=== PATIENT | female | born 1990 | race Caucasian/White ===

== ENCOUNTER 2025-04-08 07:58 | Outpatient (CLI) | payer MEDICAID ==
[2025-04-08] VITALS (10 sets, daily range): BP systolic 105–122; BP diastolic 71–79; PULSE 90–125
[2025-04-08] MEDS ORDERED: CEPH-585 PO (16:44)
== END 2025-04-08 23:59 | disposition home or self-care (01) ==
LOC: CARD DIAG 07:58
PROVIDERS: ATTEND Internal Medicine Interventional Cardiology
DX: R55 Syncope and collapse (principal)
CPT/HCPCS: 93660

== ENCOUNTER 2025-04-08 12:30 | Emergency (ER) | payer MEDICAID ==
[~2025-04-08] VITALS: Ht 157.5 cm; Wt 79.1 kg
--- NOTE | 2025-04-08 12:55 | ELECTROCARDIOGRAPH REPORT ---
[facility] Test Date: 2025-04-08 Test Time: 12:53:56 Pat Name: LEXI RIVERA Department: [facility]- Patient ID: [id number] Room: Gender: F Senior Analyst: : 1990 Requested By: CONCHITA HILLMAN Order Number: [id number] Reading MD: Dr. Sergey Garber Measurements Intervals [place] Rate: 92 P: 46 SD: 130 QRS: 73 QRSD: 82 T: 23 QT: 348 QTc: 431 Interpretive Statements Sinus rhythm Electronically Signed On 04-08-2025 18:50:[address] Sergey Garber Please click the below link to view image of tracing.
[2025-04-08 13:04] LABS: MEAN PLATELET VOLUME 9.8 FL (7.4-10.4); RED CELL DISTRIBUTION WIDTH 12.9 % (11.5-14.5)
--- NOTE | 2025-04-08 13:24 | RADIOLOGY REPORT ---
EXAM: DI CHEST,SINGLE VIEW Indication: CP Technique: Single frontal view of the chest was obtained Comparison: None FINDINGS: Lines and Tubes: None Lungs: No focal consolidation. Pleura: No effusion. No pneumothorax. Cardiomediastinal contours: Unremarkable Bones: No acute osseous abnormality. IMPRESSION: No acute cardiopulmonary disease.
[2025-04-08 13:30] LABS: CREATININE 0.76 MG/DL (0.40-0.90); PRO BRAIN NATRIURETIC PEPTIDE 53 PG/ML (0-125); TOTAL CARBON DIOXIDE 25.6 MMOL/L (24-32); eCRCL 84 ML/MIN; eGFR 88 ML/MIN
[2025-04-08 15:50] LABS: LEUKOCYTE ESTERASE ,URINE NEGATIVE (Neg); NITRITES, URINE NEGATIVE (Neg); OCCULT BLOOD,URINE LARGE (Neg)
[2025-04-08 15:59] LABS: UA COLLECTION TYPE NON-SPECIFIED
[2025-04-08 16:02] LABS: SQUAMOUS EPITHELIAL CELL,UR FEW /LPF (FEW)
[2025-04-08 16:30] VITALS: TEMP 98
[2025-04-08] MEDS ORDERED: CEPH-585 PO (16:44)
--- NOTE | 2025-04-08 16:47 | Physician Documentation ---
History of Present Illness ~ Chief Complaint: Syncope Stated Complaint: SYNCOPE Time Seen by MD: 14:32 HPI Patient is a very pleasant 34-year-old female that presents to the emergency department for evaluation of a syncopal episode witnessed at her provider's office while undergoing a tilt-table test today. Patient is a accompanied by her mother in the emergency department today. Patient and her mother report that she was undergoing a tilt-table test and orthostatic vital signs when she lost consciousness or sustained a syncopal episode. Patient had significant changes in her vital signs indicating orthostatic hypotension. She recovered quickly and was brought to the emergency department for evaluation. Patient reports that she has had previous episodes of syncope patient has also been diagnosed with POTS and has idiopathic tachycardia patient is undergoing evaluation with Cardiology and Neurology currently. Patient is currently alert and oriented and vital signs are stable. She denies any other symptoms at this time. Medication Reconciliation Allergies: Coded Allergies: No Known Allergies (Unverified , 04/08/25) Review of Systems ROS As stated above in the HPI, otherwise all systems are reviewed and negative. Physical Exam Vital Signs: Temperature: 98.0, Source: Temporal, Heart Rate: 89, Respiratory Rate: 19, BP: 121/79, Pulse Oximetry: 96, Weight: 79.100 Oxygen Flow Rate: 0 Physical Exam VITALS: Reviewed and as above. GENERAL: Alert, no apparent distress. HEENT: Normocephalic, atraumatic, PERRL, EOMI, dry mucosa, no erythema RESPIRATORY: Lungs clear, normal breath sounds, no respiratory distress. CHEST: No accessory muscle use, no retractions CV: Regular rate, rhythm, no edema, no murmur, No: JVD GI: Soft, non-tender, bowels sounds present, no rebound, guarding, or rigidity BACK: No CVA tenderness, or swelling MUSCULOSKELETAL No deformities, no edema SKIN: Warm and dry, no rash NEURO: Oriented x4, No motor or sensory deficit PSYCH: Normal mood and affect, no agitation Progress Results/Orders Results/Orders Orders - FRANCISCA AGGARWAL * Orthostatic Vitals* Q12H (04/08/25 16:13) Vital Signs 04/08/25 04/08/25 04/08/25 04/08/25 12:40 14:24 14:33 15:32 Temp 98.0 98.0 Pulse 91 90 Resp 16 18 18 B/P (MAP) 119/73 115/72 (86) Pulse Ox 98 97 99 O2 Delivery Room Air* O2 Flow Rate 0 0 0 FiO2 21 21 04/08/25 16:30 Temp 98.0 Pulse 89 Resp 19 B/P (MAP) 121/79 (93) Pulse Ox 96 O2 Flow Rate 0 Laboratory Tests Test 04/08/25 12:57 04/08/25 14:56 04/08/25 15:20 04/08/25 15:50 White Blood Count 13.4 H Red Blood Count 5.21 Hemoglobin 15.5 Hematocrit 45.1 H Mean Corpuscular Volume 86.6 Mean Corpuscular Hemoglobin 29.7 Mean Corpuscular Hemoglobin Concent 34.3 Red Cell Distribution Width 12.9 Platelet Count 274 Mean Platelet Volume 9.8 Neutrophils (%) (Auto) 87.2 H Lymphocytes (%) (Auto) 8.2 L Monocytes (%) (Auto) 3.8 Eosinophils (%) (Auto) 0.3 Basophils (%) (Auto) 0.5 Neutrophils # (Auto) 11.7 H Lymphocytes # (Auto) 1.1 Monocytes # (Auto) 0.5 Eosinophils # (Auto) 0.0 Basophils # (Auto) 0.1 CBC Comment Sodium Level 136 Potassium Level 4.1 Chloride Level 105 Carbon Dioxide Level 25.6 Anion Gap 5 L Blood Urea Nitrogen 10 Creatinine 0.76 Estimated GFR/1.73 m2 88 BUN/Creatinine Ratio 13.2 Glucose Level 129 H Calcium Level 8.6 Troponin I High Sensitivity 15 15 14 Pro-B-Type Natriuretic Peptide 53 Albumin 3.8 Chemistry Comments Troponin I High Sens Percent Delta 0 6 Troponin I Hi Sens Absolute Change 0 -1 Urine Specimen Description Non-specified Urine Color Yellow Urine Clarity Clear Urine pH 5.5 Urine Specific [place] >=1.030 Urine Protein Negative Urine Glucose (UA) Negative Urine Ketones 40 H Urine Occult Blood Large H Urine Nitrite Negative Urine Bilirubin Negative Urine Urobilinogen 0.2 Urine Leukocyte Esterase Negative Urine RBC 3-10 Urine WBC 5-10 H Urine Squamous Epithelial Cells Few Urine Transitional Epithelial Cells Few Urine Bacteria 2+ Urine Culture Indicated Indicated Volume Urine Centrifuged 10 ml Urine Comment Medical Decision Making Additional information obtaine: other Findings 34-year-old female with a history of postural orthostatic tachycardia syndrome (POTS) and prior orthostatic hypotension-related syncope presented to the ED after a witnessed syncopal episode during tilt-table testing at her providers office. The episode was associated with documented orthostatic hypotension. She is followed by neurology and cardiology, with upcoming outpatient appointments. ED evaluation included detailed history, physical examination, orthostatic vital signs, ECG, and laboratory studies. No evidence of cardiac arrhythmia, structural heart disease, or other serious medical conditions was identified. Current vital signs are stable and appropriate. No concerning findings on cardiac workup or laboratory diagnostics. Urinalysis today was positive for urinary tract infection. Patient was informed of the diagnosis, provided education regarding symptoms, potential complications, and the importance of completing the prescribed antibiotic course. Antibiotics have been prescribed for the patient to sheepskin pickler at the pharmacy. Return precautions for worsening symptoms or lack of improvement were discussed. Risk stratification places the patient at low risk for adverse outcomes, given the absence of cardiac disease, abnormal ECG, or other high-risk features. The presumptive etiology of syncope is orthostatic hypotension in the context of POTS, which is associated with a benign prognosis. Per the [place] [employer]/[place] [employer]/Heart Rhythm Society guidelines, outpatient management is reasonable in patients with reflex-mediated or orthostatic syncope and no serious comorbidities. Hospital-based evaluation is unlikely to improve outcomes in this setting. No acute interventions required for syncope. Patient is safe for discharge with close outpatient follow-up with neurology and cardiology. Return precautions and education regarding recurrent syncope, injury risk, and UTI management were provided. No evidence for cardiac syncope or need for inpatient monitoring at this time. Differential Dx:Considerations: Include: anemia, CVA, cerebral occlusion, cerebral thrombosis, dehydration, dysrhythmia, electrolyte disorder, encephalopathy, hypoglycemia, hypovolemia, labyrinthitis, Meniere's disease, myocardial infarction, pulmonary embolus, TIA, vasovagal, VBI, vertigo central, vertigo peripheral, vestibular neuronitis, other Departure Disposition: 01 HOME / SELF CARE / HOMELESS Impression: Primary Impression: Syncope Additional Impressions: Orthostatic hypotension Urinary tract infection Condition: Stable Discharge Instructions: Near-Syncope, Orthostatic Hypotension, Syncope, Adult, Urinary Tract Infection, Adult, [id number] Additional Instructions: You were seen today for fainting (syncope) and have a history of postural orthostatic tachycardia syndrome (POTS). Your vital signs, blood tests, and chest X-ray were normal. Your urine test showed a urinary tract infection (UTI). About Syncope and POTS: POTS can cause symptoms like lightheadedness, rapid heartbeat, and sometimes fainting, especially when standing up quickly. To help prevent future episodes, stand up slowly, stay hydrated, and avoid standing for long periods. Increasing salt and fluid intake may help, unless you have been told otherwise by your doctor. If you feel faint, sit or lie down right away to prevent injury. About Your Urinary Tract Infection: You have a UTI, which is an infection in your urinary system. Symptoms may include burning with urination, frequent urination, or lower abdominal pain. You have been prescribed Keflex (cephalexin), an antibiotic, to treat this infection. How to Take Keflex (Cephalexin): Take Keflex 500 mg by mouth every 6 hours (four times a day) for 7 days. Try to take the doses at evenly spaced times, such as morning, midday, evening, and bedtime. You can take Keflex with or without food. Finish all 7 days of the antibiotic, even if you start to feel better before it is done. Stopping early can cause the infection to come back and may make it harder to treat in the future. If you miss a dose, take it as soon as you remember. If it is almost time for your next dose, skip the missed dosedo not take two doses at once. Possible Side Effects: Common: Upset stomach, diarrhea, or mild rash. Rare but serious: Severe allergic reaction (trouble breathing, swelling of face /lips/tongue, severe rash), severe diarrhea (watery or bloody stools). If you have any signs of a severe reaction, seek medical attention immediately. When to Seek Medical Care: If you have chest pain, trouble breathing, severe headache, confusion, or faint again and cannot be awakened. If you develop severe side effects from the antibiotic. If your UTI symptoms do not improve in 2-3 days, or if you develop fever, back pain, or vomiting. Follow-Up: Continue follow-up with your neurologist and typist as scheduled for your POTS. If you have any questions or concerns, contact your healthcare provider. Other Instructions: Drink plenty of fluids unless you have been told to limit fluids. Avoid alcohol while taking antibiotics. Do not drive or operate heavy machinery if you feel dizzy or lightheaded. Summary: You are being treated for a UTI and your fainting episode is likely related to your POTS. Take your medication as directed, follow the above precautions, and keep your follow-up appointments. Referrals: NO PRIMARY CARE PROVIDER (PCP) Prescriptions Cephalexin*Monohydrate* (Keflex*) 500 Mg Capsule 1 CAP PO QID for 7 Days, #28 CAP Prov: FRANCISCA AGGARWAL 04/08/25 Education Educated: Patient Educated regarding: diagnosis, treatment, need for follow up Signature Scribe Signature: A Attestation: Scribed for Francisca Aggarwal by BIPIN Salcedo . 04/08/25 16:48 FRANCISCA AGGARWAL Apr 08, 2025 16:47
[2025-04-08 16:59] VITALS: BP 115/79; PULSE 79; RESP 14; O2SAT 96
== END 2025-04-08 17:07 | disposition home or self-care (01) ==
LOC: ER 12:30
DX: R55 Syncope and collapse (principal); N39.0 Urinary tract infection, site not specified; R06.02 Shortness of breath
CPT/HCPCS: 36415; 71045; 80048; 81001; 83880; 84484; 85025; 87088; 93005; 99285